=== PATIENT | female | born 1985 ===

== ENCOUNTER 2018-06-14 12:24 | Emergency (ER) | payer SELFPAY ==
[2018-06-14 12:34] VITALS: O2SAT 100
[2018-06-14] MEDS ORDERED: Sodium Chloride 0.9% 1,000 ML IV ONE (14:37)
[2018-06-14 14:59] LABS: BASO % 0.6 % (0.0-2.0); EOS # 0.1 K/uL (0.0-0.7); EOS % 0.6 % (0.0-4.0); HEMOGLOBIN 9.1 g/dL (11.0-16.0); LYMPH # 1.8 K/uL (1.0-4.3); LYMPH % 21.6 % (20.0-40.0); MEAN CORPUSCULAR HEMOGLOBIN 29.5 pg (27.0-31.0); MEAN CORPUSCULAR HGB CONC 33.2 g/dL (33.0-37.0); MONO # 0.7 K/uL (0.0-0.8); NEUT # 5.9 K/uL (1.8-7.0); NEUT % 69.2 % (50.0-75.0); NRBC % 0.1 % (0.0-2.0); RBC 3.07 Mil/uL (3.80-5.20); RED CELL DISTRIBUTION WIDTH 15.2 % (11.5-14.5); WHITE BLOOD COUNT 8.5 K/uL (4.8-10.8)
[2018-06-14 15:08] LABS: SQUAMOUS EPITHIAL 1 /hpf (0-5); URINE BACTERIA MANY (<OCC); URINE BILIRUBIN NEGATIVE (NEGATIVE); URINE BLOOD NEGATIVE (NEGATIVE); URINE CLARITY Hazy (Clear); URINE COLOR Yellow (YELLOW); URINE GLUCOSE (UA) NORMAL (Normal); URINE LEUKOCYTE ESTERASE TRACE Leu/uL (Negative); URINE PROTEIN NEGATIVE (NEGATIVE); URINE UROBILINOGEN NORMAL mg/dL (0.2-1.0)
[2018-06-14 15:27] LABS: BLOOD UREA NITROGEN 8 mg/dL (7-17); CALCIUM 8.7 mg/dl (8.6-10.4); GFR NON-AFRICAN AMERICAN > 60
[2018-06-14] MEDS ORDERED: ceFAZolin 1 gm FROZEN Premix 1 GM/50 ML ML IVPB ONE ×2 (16:10→16:15)
--- NOTE | 2018-06-14 16:27 | OBHP ---
Datetime: 06/14/2018 14:36 IP Adm Impression: , intrauterine IP Admit Plan: Observation/Evaluation Admit Comment, IP Provider: A/P: 32 yo at 27+1 wks with contractions and UTI - multigravida - previous c/s x3 - c/o pelvic pain since friday - UA with + nitrates - Ancef 1g IVPB - Will give Rx for Macrobid - f/u with clinic - D/C home HEENT - PN: Normal General - PN: Normal FHR - Baseline A Provider: 140 Membranes, Provider: Intact Contraction Comments Provider: irregular Pool Provider: Negative EGA AdmitDate IP: 27.1 Vital Signs Provider: Reviewed; Within Normal Limits IP Chief Complaint: Uterine contractions; Signs/symptoms UTI NICHD Variability Prov Fetus A: Moderate 6-25bpm NICHD Accel Fetus A IP Provider: 10X10 FHR Category Provider Fetus A: Category I NICHD Decel Fetus A IP Provider: None Dilatation, Provider: c Effacement, Provider: l Station, Provider: -3 Genitourinary Exam: Normal
[2018-06-14 21:56] VITALS: BP 114/71; PULSE 78; RESP 18; TEMP 99.8
--- NOTE | 2018-06-15 21:32 | CARD ---
APPROVED REPORT Date of service: 06/14/2018 EKG Measurement Heart [id number] <Conclusion> Normal sinus rhythm RSR' or QR pattern in V1 suggests right ventricular conduction delay Borderline ECG
--- NOTE | 2018-06-17 03:50 | C.PDOC ---
Time Seen by Provider: 06/14/18 13:08 Chief Complaint (Nursing): Abdominal Pain Past Medical History Vital Signs: Last Vital Signs Temp 99.8 F H 06/14/18 21:55 Pulse 78 06/14/18 21:55 Resp 18 06/14/18 21:55 BP 114/71 06/14/18 21:55 Pulse Ox 100 06/14/18 21:55 - Medical History PMH: Anemia Denies: Chronic Kidney Disease - Social History Hx Alcohol Use: No Hx Substance Use: No - Immunization History Hx Tetanus Toxoid Vaccination: No Hx Influenza Vaccination: No Hx Pneumococcal Vaccination: No ED Course And Treatment - Laboratory Results Result Diagrams: 06/14/18 14:56 06/14/18 14:56 Lab Results: Urine Color Yellow (YELLOW) 06/14/18 14:56 Urine Clarity Hazy (Clear) 06/14/18 14:56 Urine pH 7.0 (5.0-8.0) 06/14/18 14:56 Ur Specific [place] 1.009 (1.003-1.030) 06/14/18 14:56 Urine Protein Negative mg/dL (NEGATIVE) 06/14/18 14:56 Urine Glucose (UA) Normal mg/dL (Normal) 06/14/18 14:56 Urine Ketones Negative mg/dL (NEGATIVE) 06/14/18 14:56 Urine Blood Negative (NEGATIVE) 06/14/18 14:56 Urine Nitrate Positive (NEGATIVE) H 06/14/18 14:56 Urine Bilirubin Negative (NEGATIVE) 06/14/18 14:56 Urine Urobilinogen Normal mg/dL (0.2-1.0) 06/14/18 14:56 Ur Leukocyte Esterase Trace Uyen/uL (Negative) 06/14/18 14:56 Urine WBC (Auto) 1 /hpf (0-5) 06/14/18 14:56 Ur Squamous Epith Cells 1 /hpf (0-5) 06/14/18 14:56 Urine Bacteria Many (<OCC) H 06/14/18 14:56 O2 Sat by Pulse Oximetry: 100 Disposition - Disposition Disposition: HOME/ ROUTINE Condition: GOOD Forms: [facility] (German)
== END 2018-06-14 17:07 | disposition home or self-care (01) ==
LOC: C.ER 12:24 → C.EROB 12:24
DX: O47.02 False labor before 37 completed weeks of gestation, second trimester (principal); Z3A.27 27 weeks gestation of pregnancy
CPT/HCPCS: 80048; 81001; 82948; 85025; 93005; 96361; 96365; 99283; J0690; J7030